=== PATIENT | male | born 1955 | race Asian ===

== ENCOUNTER → 2018-12-22 | Outpatient (CLI) | payer BC ==
[~2018-12-22] MED LIST: ALLO100T PO; AMLO5TAB9 PO; ASPI81TA39 PO; ATOR10TA84 PO; LOSA25TA41 PO; METF500T7 PO; OMEG1CAP6 PO; TAMS0.4C32 PO
== END | disposition home or self-care (01) ==
LOC: RADPV 09:31
PROVIDERS: ATTEND Internal Medicine
DX: N28.1 Cyst of kidney, acquired (principal)
CPT/HCPCS: 76770